=== PATIENT | female | born 1975 | race Caucasian/White ===

== ENCOUNTER 2018-02-08 14:29 | Emergency (ER) | payer OTHER ==
[2018-02-08 14:43] VITALS: BMI 31.6
--- NOTE | 2018-02-08 15:03 | PDOC ---
History of Present Illness - General History Source: Patient Exam Limitations: No Limitations - History of Present Illness Initial Comments: 02/08/18 16:09 The patient is a 42 year old female, with a significant past medical history of parathyroidism (removed), kidney stones (2x), who presents to the emergency department with, progressively worsening intermittent headache for the past couple of days. The patient states here headache has been gradually worsening over the past few days and reports associated difficulty focusing with her vision. The patient states she took of a 5 mg percocet earlier today for the headache with minimal relief. The patient also reports she vomited twice earlier today which she describes as non bloody, non bilious. The patient states she has had similar headaches in the past but states this headache feels worse than usual. The patient denies auras. She denies recent fevers, chills, or dizziness. She denies recent diarrhea or constipation. She denies recent dysuria, frequency, urgency or hematuria. She denies recent chest pain or shortness of breath. Allergies: penicillins, [mushrooms] <Kamran Wang - Last Filed: 02/08/18 16:08> <Chrissie Gaston - Last Filed: 02/08/18 18:14> - General Chief Complaint: Migraine Headache Stated Complaint: PAIN Time Seen by Provider: 02/08/18 14:59 Past History <Kamran Wang - Last Filed: 02/08/18 16:08> - Past Medical History Anemia: No Asthma: No Cancer: No Cardiac Disorders: No CVA: No COPD: No CHF: No Dementia: No Diabetes: No GI Disorders: No Disorders: No HTN: No Hypercholesterolemia: No Kidney Stones: Yes Liver Disease: No Psychiatric Problems: Yes (anxiety) Seizures: No Thyroid Disease: No - Surgical History Abdominal Surgery: Yes (lt kidney stent) Appendectomy: No Cardiac Surgery: No Cholecystectomy: No Lung Surgery: No Neurologic Surgery: No Orthopedic Surgery: No - Immunization History Immunization Up to Date: Yes - Suicide/Smoking/Psychosocial Hx Smoking Status: No Smoking History: Never smoked Have you smoked in the past 12 months: No Number of Cigarettes Smoked Daily: 0 Cigars Per Day: 0 Information on smoking cessation initiated: No Hx Alcohol Use: No Drug/Substance Use Hx: Yes Substance Use Type: Marijuana Hx Substance Use Treatment: No <Chrissie Gaston - Last Filed: 02/08/18 18:14> - Past Medical History Allergies/Adverse Reactions: Allergies Allergy/AdvReac Type Severity Reaction Status Date / Time Penicillins Allergy Severe Swelling Verified 02/20/16 07:57 mushrooms Allergy Severe Difficulty Uncoded 02/20/16 07:57 Breathing Home Medications: Ambulatory Orders NK [No Known Home Medication] 02/08/18 Review of Systems - Review of Systems Comments:: 02/08/18 16:09 GENERAL/CONSTITUTIONAL: No fever or chills. No weakness. HEAD, EYES, EARS, NOSE AND THROAT: (+) Trouble focusing vision. No ear pain or discharge. No sore throat. CARDIOVASCULAR: No chest pain or shortness of breath. RESPIRATORY: No cough, wheezing, or hemoptysis. GASTROINTESTINAL: (+) Nausea. (+) Vomiting. No diarrhea or constipation. GENITOURINARY: No dysuria, frequency, or change in urination. MUSCULOSKELETAL: No joint or muscle swelling or pain. No neck or back pain. SKIN: No rash NEUROLOGIC: (+) Headache. No vertigo, loss of consciousness, or change in strength/sensation. ENDOCRINE: No increased thirst. No abnormal weight change. HEMATOLOGIC/LYMPHATIC: No anemia, easy bleeding, or history of blood clots. ALLERGIC/IMMUNOLOGIC: No hives or skin allergy. <Kamran Wang - Last Filed: 02/08/18 16:08> *Physical Exam - Vital Signs Last Vital Signs Temp Pulse Resp BP Pulse Ox 97.8 F 99 H 20 115/76 98 02/08/18 14:39 02/08/18 14:39 02/08/18 14:39 02/08/18 14:39 02/08/18 14:39 - Physical Exam Comments: 02/08/18 16:10 GENERAL: Awake, alert, and fully oriented, in no acute distress HEAD: No signs of trauma EYES: PERRLA, EOMI, sclera anicteric, conjunctiva clear ENT: Auricles normal inspection, hearing grossly normal, nares patent, oropharynx clear without exudates. Moist mucosa NECK: Normal ROM, supple, no lymphadenopathy, JVD, or masses LUNGS: Breath sounds equal, clear to auscultation bilaterally. No wheezes, and no crackles HEART: Regular rate and rhythm, normal S1 and S2, no murmurs, rubs or gallops ABDOMEN: Soft, nontender, normoactive bowel sounds. No guarding, no rebound. No masses EXTREMITIES: Normal range of motion, no edema. No clubbing or cyanosis. No cords, erythema, or tenderness NEUROLOGICAL: Cranial nerves II through XII grossly intact. Normal speech, normal gait SKIN: Warm, Dry, normal turgor, no rashes or lesions noted. <Kamran Wang - Last Filed: 02/08/18 16:08> - Vital Signs Last Vital Signs Temp Pulse Resp BP Pulse Ox 97.8 F 99 H 20 115/76 98 02/08/18 14:39 02/08/18 14:39 02/08/18 14:39 02/08/18 14:39 02/08/18 14:39 <Chrissie Gaston - Last Filed: 02/08/18 18:14> ED Treatment Course - LABORATORY CBC & Chemistry Diagram: 02/08/18 15:45 - ADDITIONAL ORDERS Additional order review: 02/08/18 15:45 RBC 4.39 MCV 84.3 MCHC 33.1 RDW 17.3 H D MPV 8.0 Neutrophils % 80.1 D Lymphocytes % 13.4 D Monocytes % 4.8 Eosinophils % 1.4 Basophils % 0.3 - Medications Given in the ED: ED Medications Discontinued Medications Generic Name Dose Route Start Last Admin Trade Name Vishq PRN Reason Stop Dose Admin Diphenhydramine HCl 12.5 mg 02/08/18 15:19 02/08/18 15:47 Benadryl Injection - IVPUSH 02/08/18 15:20 12.5 mg ONCE ONE Administration Metoclopramide HCl 10 mg 02/08/18 15:19 02/08/18 15:47 Reglan Injection - IVPUSH 02/08/18 15:20 10 mg ONCE ONE Administration Sodium Chloride 1,000 ml 02/08/18 15:19 02/08/18 15:47 Normal Saline - IV 02/08/18 15:20 1,000 ml ONCE ONE Administration <Kamran Wang - Last Filed: 02/08/18 16:08> - LABORATORY CBC & Chemistry Diagram: 02/08/18 15:45 02/08/18 15:59 <Chrissie Gaston - Last Filed: 02/08/18 18:14> Medical Decision Making - Medical Decision Making 02/08/18 17:01 a/p: 42yo female with diaz x few days -gradual onset -photophobia/phonophobia -worsening menstrual cycles -hx of parathyroidectomy -neuro intact -no meningeal signs -will check labs, medicate and reassess -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 Discussed stopping percocet and marijuana use answered all questions <Chrissie Gaston - Last Filed: 02/08/18 18:14> *DC/Admit/Observation/Transfer - Attestations Scribe Attestion: 02/08/18 16:11 Documentation prepared by Kamran Wang, acting as medical van driver for Chrissie Gaston DO. <Kamran Wang - Last Filed: 02/08/18 16:08> - Discharge Dispostion Admit: No - Attestations Physician Attestion: 02/08/18 18:14 I, Dr. Chrissie Gaston DO, attest that this document has been prepared under my direction and personally reviewed by me in its entirety. I further attest, that it accurately reflects all work, treatment, procedures and medical decision -making performed by me. <Chrissie Gaston - Last Filed: 02/08/18 18:14> Diagnosis at time of Disposition: Headache - Discharge Dispostion Disposition: HOME Condition at time of disposition: Stable - Referrals Referrals: Velasquez Olguin MD [Staff Physician] - Ellis Castanon MD [Staff Physician] - - Patient Instructions Printed Discharge Instructions: DI for Headache Additional Instructions: Please drink plenty of fluids. Please do not take percocet for your headache- it may become worse when taking this medication. Please follow up with the neurologist if the symptoms continue. Please take tylenol or motrin for your headache at home if it returns. Please return to the ED with any further concerns.
[2018-02-08] MEDS ORDERED: METOCLOPRAMIDE HCL INJECTION 10 MG/2 ML VIAL IVPUSH ONE (15:19)
[2018-02-08] MEDS ORDERED: SODIUM CHLORIDE 0.9% 1000 ML INFUS.BAG IV ONE (15:19)
[2018-02-08] MEDS ORDERED: METOCLOPRAMIDE HCL INJECTION 10 MG/2 ML VIAL ONE (15:26)
[2018-02-08 15:52] LABS: BASO % 0.3 % (0-2.0); EOS % 1.4 % (0-4.5); HEMOGLOBIN 12.2 GM/dL (10.7-15.3); LYMPH % 13.4 % (8-40); MCH 27.9 pg (25.7-33.7); MCHC 33.1 g/dl (32.0-36.0); MEAN CELL VOLUME 84.3 fl (80-96); MONO % 4.8 % (3.8-10.2); NEUT % 80.1 % (42.8-82.8); PLATELET COUNT 320 K/MM3 (134-434); RBC 4.39 M/mm3 (3.60-5.2); RDW 17.3 % (11.6-15.6); WHITE BLOOD COUNT 9.4 K/mm3 (4.0-10.0)
[2018-02-08 16:31] LABS: ALBUMIN 3.6 g/dl (3.4-5.0); ANION GAP 7 (8-16); BILIRUBIN,TOTAL 0.3 mg/dL (0.2-1.0); BLOOD UREA NITROGEN 16 mg/dL (7-18); CALCIUM 8.4 mg/dL (8.5-10.1); CHLORIDE 106 mmol/L (98-107); CO2 28 mmol/L (21-32); CREATININE 0.7 mg/dL (0.55-1.02); GLUCOSE,RANDOM 100 mg/dL (74-106); POTASSIUM 4.3 mmol/L (3.5-5.1); SGOT/AST 16 U/L (15-37); SGPT/ALT 18 U/L (12-78); SODIUM 141 mmol/L (136-145); TOT PROT 6.5 g/dl (6.4-8.2)
[2018-02-08 16:33] LABS: ALK PHOS 68 U/L (45-117)
[2018-02-08 17:14] VITALS: BP 113/75; PULSE 87; TEMP 98
[2018-02-08 17:48] LABS: URINE APPEARANCE SLCLOUDY; URINE BILIRUBIN NEGATIVE (<2.0 mg/dL); URINE BLOOD 3+ (NEGATIVE); URINE COLOR YELLOW; URINE GLUCOSE (UA) NEGATIVE (NEGATIVE); URINE KETONE TRACE (NEGATIVE); URINE NITRITE NEGATIVE (NEGATIVE); URINE UROBILINOGEN NEGATIVE mg/dL (0.2-1.0)
[2018-02-08 17:49] LABS: URINE LEUK ESTERASE 1+ (NEGATIVE); URINE PROTEIN 1+ (NEGATIVE)
[2018-02-08 17:58] LABS: COCAINE, UR NEGATIVE ng/ml (CUTOFF=300); METHADONE, UR NEGATIVE ng/ml (CUTOFF=300); OPIATES, URI NEGATIVE ng/ml (CUTOFF=300); PHENCYCLIDINE,URINE NEGATIVE ng/ml (CUTOFF=25); URINE AMPHETAMINES NEGATIVE ng/ml (CUTOFF=500); URINE BARBITURATES NEGATIVE ng/ml (CUTOFF=200); URINE BENZODIAZEPINES NEGATIVE ng/ml (CUTOFF=200)
[2018-02-08 18:00] LABS: EPI CELLS RARE /HPF (FEW); URINE BACTERIA RARE /hpf (NONE SEEN); URINE MUCUS RARE
== END 2018-02-08 18:24 | disposition home or self-care (01) ==
LOC: JER 14:29
PROC: 3E033GC Introduction of Other Therapeutic Substance into Peripheral Vein, Percutaneous Approach (ICD-10-PCS; principal; 2018-02-08)
DX: R51 Headache (principal); F41.9 Anxiety disorder, unspecified; Z87.442 Personal history of urinary calculi; E89.0 Postprocedural hypothyroidism
CPT/HCPCS: 36415; 80053; 80307; 81003; 81015; 84702; 85025; 96374; 96375; 99285-25; J7030

== ENCOUNTER 2018-10-15 21:49 | Emergency (ER) | payer OTHER ==
[2018-10-15 22:01] VITALS: BMI 28.3
--- NOTE | 2018-10-15 22:16 | PDOC ---
History of Present Illness - General Chief Complaint: Pain, Acute Stated Complaint: PAIN Time Seen by Provider: 10/15/18 22:07 - History of Present Illness Initial Comments: 10/15/18 22:14 43 yo F with h/o hyperparathyroidism ( removed), and recurrent nephrolithiasis s /p stent placement, who p/w left flank pain. Patient reports acute onset of spasmodic, intermittent, crampy, left flank pain beginning yesterday evening, while at grocery store (0400 PM 10/14/18). Pain resolved gradually yesterday evening following recreational marijuana use and 2.5 mg Percocet. Pain this evening of increased severity and unremitting, with paroxysms of spams. No identifiable triggers or alleviators. Patient also complains of increased urinary hesitancy, with decreased urinary output/dribbling. Also endorses one episode of bilious, non bloody emeiss in ED waiting room. Pain consistent with prior renal stone pain. Patient urologist Dr. Russo. Patient denies F,C, palpitations, BOLTON, CP, SOB, urinary complaints, abdominal pain, diarrhea, hematuria, BPR, vaginal/pelvic pain, vaginal bleeding/discharge , constipation, lightheadedness, weakness, sensory changes. PMHx: as noted above. ROS: as noted SHx: Denies Etoh, IVDA, tobacco use Allergies: NKDA Past History - Past Medical History Allergies/Adverse Reactions: Allergies Allergy/AdvReac Type Severity Reaction Status Date / Time Penicillins Allergy Severe Swelling Verified 10/15/18 22:01 mushrooms Allergy Severe Difficulty Uncoded 10/15/18 22:01 Breathing Home Medications: Ambulatory Orders Tamsulosin HCl [Flomax] 0.4 mg PO DAILY #4 cap.er.24h MDD 1 tab 10/16/18 Anemia: No Asthma: No Cancer: No Cardiac Disorders: No CVA: No COPD: No CHF: No Dementia: No Diabetes: No GI Disorders: No Disorders: No HTN: No Hypercholesterolemia: No Kidney Stones: Yes Liver Disease: No Psychiatric Problems: Yes (anxiety) Seizures: No Thyroid Disease: No - Surgical History Abdominal Surgery: Yes (lt kidney stent) Appendectomy: No Cardiac Surgery: No Cholecystectomy: No Lung Surgery: No Neurologic Surgery: No Orthopedic Surgery: No - Immunization History Immunization Up to Date: Yes - Suicide/Smoking/Psychosocial Hx Smoking Status: No Smoking History: Never smoked Have you smoked in the past 12 months: No Number of Cigarettes Smoked Daily: 0 Cigars Per Day: 0 Hx Alcohol Use: No Drug/Substance Use Hx: Yes Substance Use Type: Marijuana Hx Substance Use Treatment: No Review of Systems - Review of Systems Comments:: 10/15/18 22:15 GENERAL/CONSTITUTIONAL: No fever or chills. No weakness. HEAD, EYES, EARS, NOSE AND THROAT: No change in vision. No ear pain or discharge. No sore throat. CARDIOVASCULAR: No chest pain or shortness of breath RESPIRATORY: No cough, wheezing, or hemoptysis. GASTROINTESTINAL: + nausea, vomiting. No diarrhea or constipation. GENITOURINARY: + Left flank pain. No dysuria, frequency, or change in urination. MUSCULOSKELETAL: No joint or muscle swelling or pain. No neck or back pain. SKIN: No rash NEUROLOGIC: No headache, vertigo, loss of consciousness, or change in strength/ sensation. ENDOCRINE: No increased thirst. No abnormal weight change HEMATOLOGIC/LYMPHATIC: No anemia, easy bleeding, or history of blood clots. ALLERGIC/IMMUNOLOGIC: No hives or skin allergy. *Physical Exam - Vital Signs Last Vital Signs Temp Pulse Resp BP Pulse Ox 97.9 F 91 H 18 120/73 98 10/15/18 21:56 10/15/18 21:56 10/15/18 21:56 10/15/18 21:56 10/15/18 21:56 - Physical Exam Comments: 10/15/18 22:15 GENERAL: Awake, alert, and fully oriented, in no acute distress HEAD: No signs of trauma, normocephalic, atraumatic EYES: PERRLA, EOMI, sclera anicteric, conjunctiva clear ENT: Hearing grossly normal, nares patent, oropharynx clear without exudates. Moist mucosa NECK: Normal ROM, supple, no lymphadenopathy, JVD, or masses LUNGS: No distress, speaks full sentences, clear to auscultation bilaterally HEART: Regular rate and rhythm, normal S1 and S2, no murmurs, rubs or gallops, peripheral pulses normal and equal bilaterally. ABDOMEN: Soft, nontender, normoactive bowel sounds. No guarding, no rebound. No masses. Neg CVA ttp. EXTREMITIES : Normal inspection, Normal range of motion, no edema. No clubbing or cyanosis. SKIN: Warm, Dry, normal turgor, no rashes or lesions noted Moderate Sedation - Procedure Monitoring Vital Signs: Procedure Monitoring Vital Signs Temperature 97.9 F 10/15/18 21:56 Pulse Rate 91 H 10/15/18 21:56 Respiratory Rate 18 10/15/18 21:56 Blood Pressure 120/73 10/15/18 21:56 O2 Sat by Pulse Oximetry (%) 98 10/15/18 21:56 ED Treatment Course - LABORATORY CBC & Chemistry Diagram: 10/15/18 22:59 10/15/18 22:59 Medical Decision Making - Medical Decision Making 10/15/18 22:47 43 yo F with h/o hyperparathyroidism ( removed), and recurrent nephrolithiasis s /p stent placement, who p/w left flank pain. VSS, AF, A&OX3. Neg left sided CVA ttp. Possible nephrolithiasis. R/o obstructive uropathy. Will consider colitis, diverticulitis, cystitis. Low suspicion appendicitis, ovarian pathology. Pain control, hydration, reassess. Ed Course: NS, Zofran CBC,CMP, UA, HCG 10/15/18 23:40 Bedside U/S Renal/Bladder with left mild hydronephrosis. CBC: Unremarkable 10/16/18 01:48 CMP: Unremarkable 10/16/18 03:11 UA: 3+ Blood, 30 RBC Pain improved. 10/16/18 04:15 2 mm non obstructing stone, with left sided minimal hydronephrosis. Pt. stable for d/c with return precautions. Advised to f/u with PMD. *DC/Admit/Observation/Transfer Diagnosis at time of Disposition: Left flank pain - Discharge Dispostion Condition at time of disposition: Stable - Prescriptions Prescriptions: Tamsulosin HCl [Flomax] 0.4 mg PO DAILY #4 cap.er.24h MDD 1 tab - Referrals Referrals: Roseann Horne MD [Primary Care Provider] - Alon Young MD [Staff Physician] - - Patient Instructions Printed Discharge Instructions: DI for Flank Pain Additional Instructions: Please return to the emergency department with any new or worsening symptoms or concerns. Please follow up with your primary care physician within 72 hours. Please follow up with urology within one week. - Post Discharge Activity - Attestations Physician Attestion: 10/15/18 22:15 I attest to the information provided in this note.
[2018-10-15] MEDS ORDERED: SODIUM CHLORIDE 1,000 ML IV STA (22:43)
[2018-10-15] MEDS ORDERED: ONDANSETRON 4 MG/2 ML VIAL IVPB ONE (22:43)
[2018-10-15] MEDS ORDERED: ONDANSETRON 4 MG/2 ML VIAL ONE (22:45)
[2018-10-15 23:12] LABS: BASO % 0.6 % (0-2.0); EOS % 1.3 % (0-4.5); HEMATOCRIT 38.4 % (32.4-45.2); HEMOGLOBIN 13.4 GM/dL (10.7-15.3); LYMPH % 15.8 % (8-40); MCH 30.5 pg (25.7-33.7); MEAN CELL VOLUME 87.2 fl (80-96); MEAN PLT VOLUME 8.3 fl (7.5-11.1); MONO % 6.1 % (3.8-10.2); NEUT % 76.2 % (42.8-82.8); PLATELET COUNT 325 K/MM3 (134-434); RDW 14.1 % (11.6-15.6); WHITE BLOOD COUNT 8.6 K/mm3 (4.0-10.0)
--- NOTE | 2018-10-15 23:33 | PDOC ---
Attending Attestation - Resident Resident Name: Armando Dent - ED Attending Attestation I have performed the following: I have examined & evaluated the patient, The case was reviewed & discussed with the resident, I agree w/resident's findings & plan, Exceptions are as noted - HPI HPI: 10/15/18 23:31 43y F hx of hyperparathroidism, recurrent kidney stones (hx of stents) presents with L flank pain. Pain is similar to prior kidney stones. pain is cramping/cramping in L flank radiate to the abdomen lasting for 1-2 mnites before resolving. pt took marijana with improvement but returned today. associated with vomiting x 1 in the waiting room. Pain has since resolved. denies any pain currently. pt also notes some urgency and is only dribbling when she urinates. denies hematuria, vaginal bleeding, disrharge, dysuria. urology: lillian Physical exam: general: no acute distress abd: soft nontender no cva tenderness - Medical Decision Making 10/16/18 02:13 labs unremarkable pt in no pain none since arrival nausea resolved awaiting UA and US results if neg and pt asymptmoatic will dc with fu with dr. Ugalde
[2018-10-16 01:32] LABS: ALBUMIN 3.9 g/dl (3.4-5.0); ALK PHOS 66 U/L (45-117); ANION GAP 8 MMOL/L (8-16); BILIRUBIN,TOTAL 0.5 mg/dL (0.2-1); BLOOD UREA NITROGEN 19 mg/dL (7-18); CALCIUM 8.9 mg/dL (8.5-10.1); CHLORIDE 105 mmol/L (98-107); CO2 25 mmol/L (21-32); CREATININE 0.9 mg/dL (0.55-1.3); GLUCOSE,RANDOM 110 mg/dL (74-106); POTASSIUM 3.9 mmol/L (3.5-5.1); SGOT/AST 14 U/L (15-37); SGPT/ALT 18 U/L (13-61); SODIUM 138 mmol/L (136-145)
[2018-10-16 02:51] LABS: URINE APPEARANCE CLEAR; URINE BILIRUBIN NEGATIVE (<2.0 mg/dL); URINE COLOR STRAW; URINE GLUCOSE (UA) NEGATIVE (NEGATIVE); URINE KETONE 1+ (NEGATIVE); URINE LEUK ESTERASE NEGATIVE (NEGATIVE); URINE NITRITE NEGATIVE (NEGATIVE); URINE PROTEIN NEGATIVE (NEGATIVE); URINE UROBILINOGEN NEGATIVE mg/dL (0.2-1.0)
[2018-10-16 02:56] LABS: EPI CELLS RARE /HPF (FEW); URINE MUCUS RARE
[2018-10-16 04:46] VITALS: BP 103/75; PULSE 71; TEMP 98
== END 2018-10-16 04:50 | disposition home or self-care (01) ==
LOC: JER 21:49
PROC: BT4JZZZ Ultrasonography of Kidneys and Bladder (ICD-10-PCS; principal; 2018-10-15)
PROC: BT4JZZZ Ultrasonography of Kidneys and Bladder (ICD-10-PCS; 2018-10-15)
DX: N13.2 Hydronephrosis with renal and ureteral calculous obstruction (principal)
CPT/HCPCS: 36415; 76775-TC; 80053; 81003; 81015; 84703; 85025; 87086; 99283-25; J7030

== ENCOUNTER 2019-01-20 16:12 | Emergency (ER) | payer OTHER ==
[2019-01-20 16:34] VITALS: BP 118/69; PULSE 102; TEMP 97.9; BMI 28.3
--- NOTE | 2019-01-20 16:35 | PDOC ---
Rapid Medical Evaluation Chief Complaint: Chest Pain Time Seen by Provider: 01/20/19 16:29 Medical Evaluation: Allergies Allergy/AdvReac Type Severity Reaction Status Date / Time Penicillins Allergy Severe Swelling Verified 10/15/18 22:01 mushrooms Allergy Severe Difficulty Uncoded 10/15/18 22:01 Breathing 01/20/19 16:30 c/o b/l chest pain worse with breathing. smokes marijuana denies NVD,diaphoresis Pe: patient alert ox3 sleepy in between conversation breath sounds clear tachycardia A: chest pain P: labs chest xray ekg patient to the ER for further management of care Discharge Disposition - Diagnosis Chest pain Qualifiers: Chest pain type: chest pain on breathing Qualified Code(s): R07.1 - Chest pain on breathing; R07.81 - Pleurodynia - Referrals - Patient Instructions - Post Discharge Activity
[2019-01-20 16:50] LABS: BASO % 0.8 % (0-2.0); EOS % 2.3 % (0-4.5); HEMATOCRIT 40.3 % (32.4-45.2); HEMOGLOBIN 13.7 GM/dL (10.7-15.3); LYMPH % 25.4 % (8-40); MCH 30.4 pg (25.7-33.7); MEAN CELL VOLUME 89.2 fl (80-96); MEAN PLT VOLUME 8.1 fl (7.5-11.1); MONO % 5.7 % (3.8-10.2); NEUT % 65.8 % (42.8-82.8); PLATELET COUNT 394 K/MM3 (134-434); RBC 4.53 M/mm3 (3.60-5.2); RDW 15.1 % (11.6-15.6); WHITE BLOOD COUNT 8.2 K/mm3 (4.0-10.0)
[2019-01-20 17:05] LABS: INR 0.95 (0.83-1.09); PROTHROMBIN TIME (PATIENT) 11.2 SEC (9.7-13.0)
--- NOTE | 2019-01-20 17:09 | PDOC ---
History of Present Illness - General Chief Complaint: Pain Stated Complaint: CHEST PAIN Time Seen by Provider: 01/20/19 16:29 History Source: Patient - History of Present Illness Initial Comments: 01/20/19 17:09 43 yo F with h/o hyperparathyroidism ( removed), and recurrent nephrolithiasis s /p stent placement, who p/w chest pressure on inspiration since this morning and feeling of anxiety. She used to be treated for anxiety with Xanax but not anymore. Admits to some new stressors this week. Admits to smoking tobacco. Not on any contraceptice medication. Not (partner has vasectomy.) Past History - Past Medical History Allergies/Adverse Reactions: Allergies Allergy/AdvReac Type Severity Reaction Status Date / Time Penicillins Allergy Severe Swelling Verified 01/20/19 16:30 mushrooms Allergy Severe Difficulty Uncoded 01/20/19 16:30 Breathing Home Medications: Ambulatory Orders NK [No Known Home Medication] 01/20/19 Anemia: No Asthma: No Cancer: No Cardiac Disorders: No CVA: No COPD: No CHF: No Dementia: No Diabetes: No GI Disorders: No Disorders: No HTN: No Hypercholesterolemia: No Kidney Stones: Yes Liver Disease: No Psychiatric Problems: Yes (anxiety) Seizures: No Thyroid Disease: No - Surgical History Abdominal Surgery: Yes (lt kidney stent) Appendectomy: No Cardiac Surgery: No Cholecystectomy: No Lung Surgery: No Neurologic Surgery: No Orthopedic Surgery: No - Immunization History Immunization Up to Date: Yes - Suicide/Smoking/Psychosocial Hx Smoking Status: No Smoking History: Current every day smoker Have you smoked in the past 12 months: No Number of Cigarettes Smoked Daily: 0 Cigars Per Day: 0 Information on smoking cessation initiated: No Hx Alcohol Use: No Drug/Substance Use Hx: Yes Substance Use Type: Marijuana Hx Substance Use Treatment: No Review of Systems - Review of Systems Able to Perform ROS?: Yes Is the patient limited Micronesian proficient: No Constitutional: No: Symptoms Reported HEENTM: No: Symptoms Reported Respiratory: Yes: Symptoms reported, See HPI Cardiac (ROS): No: Symptoms Reported ABD/GI: No: Symptoms Reported : No: Symptoms Reported Musculoskeletal: No: Symptoms Reported All Other Systems: Reviewed and Negative *Physical Exam - Vital Signs Last Vital Signs Temp Pulse Resp BP Pulse Ox 97.9 F 102 H 18 118/69 97 01/20/19 16:30 01/20/19 16:30 01/20/19 16:30 01/20/19 16:30 01/20/19 16:30 - Physical Exam General Appearance: Yes: Nourished, Appropriately Dressed, Mild Distress HEENT: positive: EOMI, ESTELLA, Normal ENT Inspection Respiratory/Chest: positive: Lungs Clear, Normal Breath Sounds. negative: Chest Tender, Respiratory Distress Cardiovascular: positive: Regular Rhythm, S1, S2, Tachycardia Gastrointestinal/Abdominal: positive: Normal Bowel Sounds, Flat, Soft. negative : Tender Extremity: positive: Normal Capillary Refill, Normal Inspection, Normal Range of Motion Neurologic: positive: Fully Oriented, Alert, Normal Mood/Affect, Normal Response , Motor Strength 5/5 Moderate Sedation - Procedure Monitoring Vital Signs: Procedure Monitoring Vital Signs Temperature 97.9 F 01/20/19 16:30 Pulse Rate 102 H 01/20/19 16:30 Respiratory Rate 18 01/20/19 16:30 Blood Pressure 118/69 01/20/19 16:30 O2 Sat by Pulse Oximetry (%) 97 01/20/19 16:30 ED Treatment Course - LABORATORY CBC & Chemistry Diagram: 01/20/19 16:38 01/20/19 16:38 - ADDITIONAL ORDERS Additional order review: Laboratory Results 01/20/19 01/20/19 16:38 16:38 PT with INR 11.20 INR 0.95 D-Dimer 326 01/20/19 16:38 RBC 4.53 MCV 89.2 MCHC 34.0 RDW 15.1 MPV 8.1 Neutrophils % 65.8 Lymphocytes % 25.4 D Monocytes % 5.7 Eosinophils % 2.3 Basophils % 0.8 Medical Decision Making - Medical Decision Making 01/20/19 19:15 43f with palpitations and pressure-like sensation over her chest since this morning,. PE vs MA vs Hyperthyroidism vs anxiety. EKG : Normal sinus rhythm, normal ekg. Normal labs, trops, tsh. Chest xray: no acute processes. Will send second trop and discharge if negative. *DC/Admit/Observation/Transfer Diagnosis at time of Disposition: Anxiety - Referrals - Patient Instructions - Post Discharge Activity
[2019-01-20 17:14] LABS: ALBUMIN 3.9 g/dl (3.4-5.0); ALK PHOS 83 U/L (45-117); ANION GAP 6 MMOL/L (8-16); BILIRUBIN,TOTAL 0.2 mg/dL (0.2-1); BLOOD UREA NITROGEN 17 mg/dL (7-18); CALCIUM 8.9 mg/dL (8.5-10.1); CHLORIDE 104 mmol/L (98-107); CO2 29 mmol/L (21-32); CREATININE 0.9 mg/dL (0.55-1.3); GLUCOSE,RANDOM 106 mg/dL (74-106); MAGNESIUM 2.2 mg/dL (1.8-2.4); POTASSIUM 4.4 mmol/L (3.5-5.1); SGOT/AST 15 U/L (15-37); SGPT/ALT 25 U/L (13-61); SODIUM 139 mmol/L (136-145); TOT PROT 7.1 g/dl (6.4-8.2)
--- NOTE | 2019-01-20 17:31 | PDOC ---
Attending Attestation - HPI HPI: 01/20/19 18:13 The patient is a 43 year old female with a significant past medical history of hyperthyroidism , kidney stones and anxiety who presents to the emergency department with some chest discomfort since earlier today. The patient reports some associated feeling of anxiety with her chest discomfort. She endorses some stressors of her pain. She denies any other symptoms or complaints. <Seymour Villanueva - Last Filed: 01/20/19 18:13> - Resident Resident Name: DillanCedrick - ED Attending Attestation I have performed the following: I have examined & evaluated the patient, The case was reviewed & discussed with the resident, I agree w/resident's findings & plan, Exceptions are as noted - Physicial Exam PE: 01/20/19 19:20 pt is awake, alert, nad nc, atr perrla, eomi cta rrr abd-soft, nt, nd - Medical Decision Making 01/20/19 19:21 43 y/o female wtih no significant cad risk factors presents with atypical chest tighness. ekg is wnl w/o evidence of ischemia. d-dimer is negative and pe is unlikely. chest x-ray is wnl. HEART score is 1. will obtain serial cardiac enzymes. will d/c with outpt f/u. <Landry Shane - Last Filed: 01/20/19 19:22> Attestations - Attestations 01/20/19 18:13 Documentation prepared by Seymour Villanueva, acting as spanish medical interpreter for Landry Shane MD. <Seymour Villanueva - Last Filed: 01/20/19 18:13>
[2019-01-20 17:51] LABS: HCG,QUALITATIVE URINE NEGATIVE
[2019-01-20 17:54] LABS: URINE APPEARANCE SLCLOUDY; URINE BILIRUBIN NEGATIVE (<2.0 mg/dL); URINE COLOR YELLOW; URINE GLUCOSE (UA) NEGATIVE (NEGATIVE); URINE KETONE NEGATIVE (NEGATIVE); URINE LEUK ESTERASE NEGATIVE (NEGATIVE); URINE NITRITE NEGATIVE (NEGATIVE); URINE PROTEIN NEGATIVE (NEGATIVE)
--- NOTE | 2019-01-21 14:03 | EKG ---
Test Reason : Blood Pressure : / mmHG Vent. Rate : 089 BPM Atrial Rate : 089 BPM P-R Int : 114 ms QRS Dur : 086 ms QT Int : 374 ms P-R-T Axes : 043 072 067 degrees QTc Int : 455 ms NORMAL SINUS RHYTHM NORMAL ECG WHEN COMPARED WITH ECG OF 27-OCT-2014 12:05, VENT. RATE HAS INCREASED BY 38 BPM Confirmed by JONATHAN MERRITT MD ([id number]) on 01/21/2019 2:03:25 PM Referred By: Confirmed By:JONATHAN MERRITT MD
== END 2019-01-20 19:58 | disposition home or self-care (01) ==
LOC: JER 16:12
DX: E21.3 Hyperparathyroidism, unspecified (principal); F41.9 Anxiety disorder, unspecified; F17.210 Nicotine dependence, cigarettes, uncomplicated
CPT/HCPCS: 36415; 71046-TC-FY; 80053; 81003; 82550; 83735; 84443; 84484; 84703; 85025; 85379; 85610; 93005; 93010; 99283-25

== ENCOUNTER 2024-07-26 21:41 | Emergency (ER) | payer OTHER ==
[2024-07-26 21:51] VITALS: BP 133/75; PULSE 92; RESP 18; TEMP 97.7; BMI 27.4
== END 2024-07-27 00:10 | disposition home or self-care (01) ==
LOC: JERFT 21:41
DX: S82.54XA Nondisplaced fracture of medial malleolus of right tibia, initial encounter for closed fracture (principal); W18.39XA Other fall on same level, initial encounter
CPT/HCPCS: 73521-TC-FY; 73610-TC-RT-FY; 99283-25